=== PATIENT | female | born 1975 | race Caucasian/White ===

== ENCOUNTER → 2024-08-01 | Outpatient (CLI) | payer OTHER ==
--- NOTE | 2024-08-01 10:59 | XR ---
EXAMINATION TYPE: XR knee complete LT DATE OF EXAM: 08/01/2024 10:41 AM COMPARISON: None. CLINICAL INDICATION: Female, 49 years old with history of S83.92XA SPRAIN OF UNSPECIFIED SITE OF LEFT KNEE,, pain TECHNIQUE: 4 view(s) obtained. FINDINGS: Medial femoral condylar and lateral femoral condylar spurring is present. Lateral tibial plateau spur is present. No acute fractures or dislocations evident. No joint effusion is evident. Posterior supe rior patellar spurring is present. IMPRESSION: 1. No acute osseous abnormality left knee. 2. Mild degenerative joint changes left knee [facility], , 08/01/2024 10:56 AM
== END | disposition home or self-care (01) ==
LOC: RADXRMAIN 10:20
PROVIDERS: ATTEND Emergency Medicine
DX: S83.92XA Sprain of unspecified site of left knee, initial encounter (principal); M17.12 Unilateral primary osteoarthritis, left knee; X58.XXXA Exposure to other specified factors, initial encounter

== ENCOUNTER → 2024-08-14 | Outpatient (CLI) | payer OTHER ==
--- NOTE | 2024-08-14 12:15 | US ---
EXAMINATION TYPE: US venous doppler duplex LE LT DATE OF EXAM: 08/14/2024 12:05 PM COMPARISON: NONE CLINICAL INDICATION: Female, 49 years old with history of M79.662 PAIN IN LOW LEFT LEG , S83.92XD; LT KNEE INJURY 07/21/24, LT LEG BRUISING/SWELLING X 1 DAY,NO HX OF DVT, NO THINNERS, Pain TECHNIQUE: The lower extremity deep venous system is examined utilizing real time linear array sonog gilbert with graded compression, color doppler sonography, and spectral doppler. SIDE PERFORMED: Left FINDINGS: VESSELS IMAGED: Common Femoral Vein Deep Femoral Vein Greater Saphenous Vein * Femoral Vein Popliteal Vein Small Saphenous Vein * Proximal Calf Veins (* superficial vessels) Left Leg: Negative for DVT, Color Doppler imaging shows patency of the vessels. Spectral waveforms a re within normal limits. IMPRESSION: No evidence of deep vein thrombosis of the left lower extremity. [facility], , 08/14/2024 12:12 PM
== END | disposition home or self-care (01) ==
LOC: RADUSWWP 11:30
PROVIDERS: ATTEND Emergency Medicine
DX: S83.92XD Sprain of unspecified site of left knee, subsequent encounter (principal); S80.12XA Contusion of left lower leg, initial encounter

== ENCOUNTER → 2024-08-15 | Outpatient (CLI) | payer OTHER ==
--- NOTE | 2024-08-15 14:07 | MR ---
EXAMINATION TYPE: MR knee LT wo con DATE OF EXAM: 08/15/2024 10:11 AM COMPARISON: None. CLINICAL INDICATION: Female, 49 years old with history of S83.92XD SPRAIN OF UNSPECIFIED SITE OF LEFT KNEE, left knee pain due to injury at work getting of forklift 07-21-24. IV Contrast: cc (None if empty) TECHNIQUE: Multiplanar, multisequence imaging of the left knee is performed without IV contrast. FINDINGS: There is a large joint effusion and a large 5.8 x 2.1 x 2.0 cm Friedman's cyst. There is no bone contusion or fracture. There is complete loss of the articular cartilage of the lateral patellar facet with marked joint spa ce narrowing. There is moderate narrowing of the medial and lateral compartments of the knee and fran dromalacia patella of the articular cartilage in the medial compartment. There is moderate to marked hypertrophic spurring of both the medial lateral compartments. There is no meniscal tear. There is no ligamentous injury in the cruciate and collateral ligaments are intact. The patellar and quadriceps tendons are intact. IMPRESSION: 1. Tricompartment osteoarthritis as described above, severe in the patellofemoral compartment, and mo derate in the medial lateral compartments as described above. 2. Large joint effusion and large Friedman's cyst. 3. No meniscal tear. 4. No ligamentous injury [facility], , 08/15/2024 2:04 PM
== END | disposition home or self-care (01) ==
LOC: RADMRIMAIN 09:33
PROVIDERS: ATTEND Emergency Medicine
DX: S83.92XD Sprain of unspecified site of left knee, subsequent encounter (principal); M17.12 Unilateral primary osteoarthritis, left knee; M25.462 Effusion, left knee